=== PATIENT | female | born 1945 | race Caucasian/White ===

== ENCOUNTER → 2017-09-19 | Outpatient (CLI) | payer MEDICARE ==
[2017-09-19 15:20] LABS: HCT 42.7 % (34.0-46.0); HGB 13.9 gm/dL (11.4-16.0); MCH 29.8 pg (25.0-35.0); MCHC 32.5 g/dL (31.0-37.0); MCV 91.8 fL (80.0-100.0); Mean Platelet Volume 7.4; Platelet Count 229 k/uL (150-450); RBC 4.65 m/uL (3.80-5.40); RDW 12.9 % (11.5-15.5); WBC 8.3 k/uL (3.8-10.6)
[2017-09-19 15:30] LABS: Anion Gap 8 mmol/L; Blood Urea Nitrogen 21 mg/dL (7-17); Carbon Dioxide 29 mmol/L (22-30); Chloride 99 mmol/L (98-107); Potassium 4.3 mmol/L (3.5-5.1); Sodium 136 mmol/L (137-145)
== END | disposition home or self-care (01) ==
LOC: LABWHC1 14:18
PROVIDERS: ATTEND Internal Medicine Interventional Cardiology
DX: Z01.812 Encounter for preprocedural laboratory examination (principal); I25.10 Atherosclerotic heart disease of native coronary artery without angina pectoris
CPT/HCPCS: 36415; 80051; 82565; 84520; 85027

== ENCOUNTER 2017-09-23 09:30 | Day surgery (SDC) | payer MEDICARE ==
[~2017-09-23 09:30] MED LIST: ALPRAZolam 0.25 MG TAB PO PRN; ALPRAZolam 0.5 MG TAB PO PRN; ASPIRIN 325 MG TAB PO STA; ATORVASTATIN 80 MG TAB PO STA; NITROGLYCERIN SL TABS 0.4 MG TAB SUBLINGUAL PRN; SODIUM CHLORIDE 0.9% 1,000 ML in EMPTY BAG 1 BAG IV ONE
[2017-09-23 09:48] VITALS: TEMP 98.2
[2017-09-23 10:01] LABS: Glucose,Whole Blood 172 mg/dL (75-99)
[2017-09-23] MEDS ORDERED: MIDAZOLAM 2 MG/2 ML VIAL ONE (11:00)
[2017-09-23] MEDS ORDERED: MIDAZOLAM 2 MG/2 ML VIAL IVP ONE (11:02)
[2017-09-23] MEDS ORDERED: LIDOCAINE 2% INJ 20 MG/ML SQ ONE (11:03)
[2017-09-23] MEDS ORDERED: IOHEXOL 350 MG/ML 125ML BOTTLE INJ ONE (11:21)
[2017-09-23] MEDS ORDERED: HYDROmorphone 2 MG/ML 1 ML SYRINGE ONE (11:27)
[2017-09-23] MEDS ORDERED: RX INFO: IV CONTRAST WAS GIVEN 1 EACH MISC MISCELLANE PRN (12:02)
[2017-09-23] MEDS ORDERED: SODIUM CHLORIDE 0.9% 1,000 ML IV SCH (12:15)
--- NOTE | 2017-09-23 13:03 | CC ---
CARDIAC CATHETERIZATION REPORT DATE OF SERVICE: 09/23/2017. PERFORMING PHYSICIAN: Pop Magana MD, distributing clerk. PROCEDURE PERFORMED: 1. Selective right and left coronary angiogram. 2. Left heart catheterization. 3. Left ventriculography. INDICATION: This is a pleasant 72-year-old female patient who is known to have coronary artery disease and prior stenting of the RCA and left circumflex was experiencing chest discomfort and she underwent a myocardial perfusion imaging stress test and that revealed anterior ischemia. In view of that, heart catheterization was recommended. APPROACH: Right common femoral artery. COMPLICATION: None. LEVEL OF SEDATION: Moderate with sedation length of 25 minutes. PROCEDURE DESCRIPTION: After obtaining an informed consent, the patient was brought to the cardiac r&d lab technician. The right common femoral artery was cannulated using micropuncture technique and a micropuncture wire passed easily. Then I placed a 6-Lithuanian sheath in the right common femoral artery. After that, I did selective right and left coronary angiogram using JR4 and JL4 catheters. After that I did left heart catheterization and LV gram using 6- Lithuanian pigtail catheter. The procedure was completed without any complication. SELECTIVE CORONARY ANGIOGRAM: 1. The RCA is a large caliber vessel and it is a dominant vessel. The proximal RCA is stented and the stent is patent. The mid RCA has mild disease only and RCA distally appeared to be angiographically normal and bifurcates into PDA and PLV branches. Both are angiographically normal. 2. The left main is angiographically normal. It bifurcates into the left circumflex and left anterior descending artery. 3. The left circumflex is a large caliber vessel and it is a nondominant vessel. The proximal circ is stented and the stent is patent. The mid circ is normal and gives rise into OM branch which seems to be angiographically normal and the circ continued after that as a medium caliber vessel in the AV groove. 4. The left anterior descending artery; the proximal LAD is normal and gives rise into a large diagonal, which seems to be angiographically normal. The mid LAD has mild disease only and the LAD distally appeared to have mild disease only. HEMODYNAMICS: The left ventricular end-diastolic pressure was 8 mmHg and no gradient was identified across the aortic valve. LEFT VENTRICULOGRAPHY: Left ventriculography was performed in the ANGELO projection and using a power injection. The left ventricular systolic function is normal with an EF of 55% to 60%. CONCLUSION: 1. Patent stent in the RCA and left circumflex. 2. Mild nonobstructive disease involving the left anterior descending artery. Postprocedure management is maximize medical treatment and follow up with the patient. WENDIE / IJN: [id number] /
--- NOTE | 2017-09-23 13:06 | LTR ---
September 23, 2017 Re: Melida Elizabeth Dear Dr. Corbin: I had the pleasure of seeing Ms. Melida Johnson at [facility] for heart catheterization. The heart catheterization revealed patent stents in both the RCA and the left circumflex. No need for any workup at this point of time. I will continue following up with her as an outpatient and I want to thank you for allowing me to participate in her care. Sincerely, MD WENDIE Brambila / ELINA: [phone] /
[2017-09-23 15:21] VITALS: BP 120/84; PULSE 75; RESP 16
== END 2017-09-23 16:46 | disposition home or self-care (01) ==
LOC: CATHCVL 09:30
PROVIDERS: ATTEND Internal Medicine Interventional Cardiology
DX: I25.110 Atherosclerotic heart disease of native coronary artery with unstable angina pectoris (principal); Z95.5 Presence of coronary angioplasty implant and graft; R94.39 Abnormal result of other cardiovascular function study; E11.9 Type 2 diabetes mellitus without complications; I10 Essential (primary) hypertension; E78.00 Pure hypercholesterolemia, unspecified; Z82.49 Family history of ischemic heart disease and other diseases of the circulatory system; Z79.82 Long term (current) use of aspirin; Z79.4 Long term (current) use of insulin; Z79.899 Other long term (current) drug therapy; Z88.5 Allergy status to narcotic agent; Z87.891 Personal history of nicotine dependence
CPT/HCPCS: 93458; C1760; C1894; C1769 ×2; J2001; J2250; Q9967

== ENCOUNTER 2019-05-18 15:48 | Emergency (ER) | payer MEDICARE ==
[2019-05-18] MEDS ORDERED: SODIUM CHLORIDE 0.9% 500 ML 500 ML IV STA (17:16)
[2019-05-18 17:23] VITALS: RESP 18
[2019-05-18 17:26] LABS: Basophils # (A) 0.1 k/uL (0-0.2); Basophils % (A) 1 %; Eosinophils # (A) 0.2 k/uL (0-0.7); Eosinophils % (A) 2 %; HCT 44.6 % (34.0-46.0); HGB 15.1 gm/dL (11.4-16.0); Lymphocytes # (A) 1.4 k/uL (1.0-4.8); Lymphocytes % (A) 15 %; MCH 31.2 pg (25.0-35.0); MCHC 33.9 g/dL (31.0-37.0); MCV 92.1 fL (80.0-100.0); Mean Platelet Volume 7.9; Monocytes # (A) 0.5 k/uL (0-1.0); Monocytes % (A) 6 %; Neutrophils # (A) 6.6 k/uL (1.3-7.7); Neutrophils % (A) 75 %; Platelet Count 218 k/uL (150-450); RBC 4.85 m/uL (3.80-5.40); RDW 12.8 % (11.5-15.5); WBC 8.8 k/uL (3.8-10.6)
--- NOTE | 2019-05-18 17:28 | ED ---
General Adult HPI - General Chief complaint: Dizziness Stated complaint: Dizziness/Chest pressure Time Seen by Provider: 05/18/19 16:57 Source: patient, family, RN notes reviewed, old records reviewed Mode of arrival: ambulatory Limitations: no limitations - History of Present Illness Initial comments: Chief complaint and history of present illness this is a 74-year-old female here with her significant other. The patient reports that for the past month she's been seeing her family doctor with a complaint of worsening dizziness. Increases with standing and movement. She reports that she almost fell several times. On top of that she is also complaining of diarrhea, on-again nausea and vomiting, decreased urination and mild chest pressure which is reproducible. Patient reports when she takes a deep breath she gets the pain and describes it as a catching feeling in the middle of her chest. She has been on metoprolol for many years recently decreased and subsequently stopped 2 days ago. Told to come the emergency room if her symptoms worsen. She states she's not been trying to lose weight but she's lost 30 pounds in the past 3 months. She denies any dark stool. Denies any ulcer type symptoms of late. - Related Data Home Medications Medication Instructions Recorded Confirmed Aspirin 81 mg PO DAILY 11/20/14 05/18/19 Citalopram Hydrobromide 40 mg PO DAILY 11/20/14 05/18/19 [Citalopram HBr] Timolol 0.5% Ophth Soln [Timoptic 1 drop RIGHT EYE QAM 11/20/14 05/18/19 0.5% Ophth Soln] Vits A,C,E/Lutein/Minerals 1 tab PO BID 11/20/14 05/18/19 [Ocuvite with Lutein Tablet] Insulin Glargine [Lantus] 38 unit SQ QAM 09/20/17 05/18/19 Dicyclomine [Bentyl] 10 mg PO TID-W/MEALS 05/18/19 05/18/19 Empagliflozin [Jardiance] 25 mg PO DAILY 05/18/19 05/18/19 Furosemide [Lasix] 40 mg PO DAILY 05/18/19 05/18/19 Hydrochlorothiazide [Hydrodiuril] 25 mg PO DAILY 05/18/19 05/18/19 Isosorbide Mononitrate ER [Imdur] 30 mg PO DAILY 05/18/19 05/18/19 Lisinopril [Zestril] 20 mg PO DAILY 05/18/19 05/18/19 Oxybutynin Chloride 5 mg PO BID 05/18/19 05/18/19 Pioglitazone HCl [Actos] 15 mg PO DAILY 05/18/19 05/18/19 Psyllium Husk [Metamucil] 0.4 gm PO DAILY 05/18/19 05/18/19 metFORMIN HCL ER [Glucophage Xr] 500 mg PO BID 05/18/19 05/18/19 Allergies Allergy/AdvReac Type Severity Reaction Status Date / Time codeine AdvReac Nausea & Verified 05/18/19 16:28 Vomiting Review of Systems ROS Statement: Those systems with pertinent positive or pertinent negative responses have been documented in the HPI. Review of systems. Patient denies headache or visual acuity changes change in position increases dizziness especially from a sitting to a standing position complaint nausea vomiting at times and diarrhea. Recently was taken off metoprolol which she had been on for many years. Also decreased urine output lately. Denies any neuro deficits. Denies any pain other than occasional chest discomfort when she takes a deep breath. All systems were reviewed. Past medical problems significant for heart disease with one episode of [place]. She's had 2 cardiac stents placed, 3 DVTs one PE, GERD, hypertension, hypothyroidism and macular degeneration. The patient's surgeon cholecystectomy, heart catheterization with 2 stents, hysterectomy, carpal tunnel surgery, 2 heart stents, LAP-BAND surgery but no fluid currently in the band. Family history sister had lung cancer and a brother had leukemia. Patient has ALLERGIES to codeine which causes upset stomach. Patient quit smoking in 1984. Drinks one glass of wine every 2 months. ROS Other: All systems not noted in ROS Statement are negative. Past Medical History Past Medical History: Coronary Artery Disease (CAD), Chest Pain / Angina, Diabetes Mellitus, Deep Vein Thrombosis (DVT), Eye Disorder, GERD/Reflux, Hypertension, Myocardial Infarction (OH), Pulmonary Embolus (PE), Thyroid Disorder Additional Past Medical History / Comment(s): DVT X 3 KEVIN LEGS, PE 1971, IBS, MACULAR DEG KEVIN EYE-LT EYE WET-RT EYE DRY, GOITER. Diverticulitis, stomach ulcer Last Myocardial Infarction Date:: Jun 2012 History of Any Multi-Drug Resistant Organisms: None Reported Past Surgical History: Cholecystectomy, Heart Catheterization With Stent, Hysterectomy, Orthopedic Surgery Additional Past Surgical History / Comment(s): heart stent x 2, LAP BAND-NO FLU ID PRESENT, KEVIN CATARACT REM, EYE SURGERY TO REMOVE GLASS FROM LT EYE, PLASTIC PLATE AND MUSCLE SURGERY LT EYE Past Anesthesia/Blood Transfusion Reactions: No Reported Reaction Date of Last Stent Placement:: NOVEMBER 2014 Past Psychological History: No Psychological Hx Reported, Depression Smoking Status: Former smoker Past Alcohol Use History: None Reported Past Drug Use History: None Reported - Past Family History Sister(s) Family Medical History: Deep Vein Thrombosis (DVT) Father Family Medical History: Coronary Artery Disease (CAD), Diabetes Mellitus General Exam - General Exam Comments Initial Comments: General: The patient is awake and alert, here because of dizziness which is getting progressively worse especially over the past 2 days. She states she nearly falls over when she stands up. She states while in the doctor's office her blood pressure dropped by more than 20 points from sitting to standing. Patient was taken off metoprolol 3 days ago. Vital signs shows temperature 98.9 initial pulse 117 after resting it was 90 on examination. Respiratory rate 20 pressure 111/63 and a pulse ox 95% room air. Eye: Pupils are equal, round and reactive to light, extra-ocular movements are intact; there is normal conjunctiva bilaterally. No signs of icterus. Ears, nose, mouth and throat: There are moist mucous membranes and no oral lesions. Neck: The neck is supple, there is no tenderness, thyroid not enlarged, no anterior cervical lymphadenopathy, no carotid bruit. Cardiovascular: There is a regular rate and rhythm. No murmur, rub or gallop is appreciated. Respiratory: Lungs are clear to auscultation, respirations are non-labored, breath sounds are equal. No wheezes, stridor, rales, or rhonchi. Patient states a deep breath causes mild discomfort to her chest, reproducible. Gastrointestinal: Soft, non-distended, non-tender abdomen without masses or organomegaly noted. There is no rebound or guarding present. No CVA tenderness. Bowel sounds are unremarkable. Patient reports she has a history of irritable bowel syndrome. I did mild upset stomach of late, ulcer in the past but does not feel like she has an ulcer now. Denies any dark stools. Back: Denies back pain.. Musculoskeletal: Normal ROM, no tenderness, There is no pedal edema. There is no calf tenderness or swelling. Sensation intact. Pulses equal bilaterally 2+. Neurological: No neuro deficits complained of. She does complain of dizziness from sitting to standing position which is getting progressively worse over the past several days. Skin: Skin is warm and dry and no rashes or lesions are noted. Psychiatric: Cooperative, Limitations: no limitations Course Vital Signs 05/18/19 05/18/19 05/18/19 15:53 17:20 18:30 Temperature 98.9 F Pulse Rate 117 H 91 83 Pulse Rate [ Sitting Sanitary Aide] Pulse Rate [ Standing Sanitary Aide ] Pulse Rate [ Supine Sanitary Aide] Respiratory 20 18 18 Rate Blood Pressure 111/63 111/61 115/53 Blood Pressure [Right Arm Sitting] Blood Pressure [Right Arm Standing] Blood Pressure [Right Arm Supine] O2 Sat by Pulse 95 98 97 Oximetry 05/18/19 05/18/19 19:00 20:00 Temperature Pulse Rate 71 Pulse Rate [ 80 Sitting Sanitary Aide] Pulse Rate [ 93 Standing Sanitary Aide ] Pulse Rate [ 74 Supine Sanitary Aide] Respiratory 18 Rate Blood Pressure 117/49 Blood Pressure 130/59 [Right Arm Sitting] Blood Pressure 112/65 [Right Arm Standing] Blood Pressure 122/50 [Right Arm Supine] O2 Sat by Pulse 96 Oximetry EKG Findings - EKG Comments: EKG Findings:: EKG was done and reviewed at 1600 showing sinus tachycardia rate 105. No acute ST elevation noted. ND interval is 158 QRS 82 QT 362 QTc 478. EKG was compared to one done on 03/08/2015 and they are similar. Dr. Doyle Medical Decision Making - Medical Decision Making Medical decision making; this 74-year-old female here for complaint of worsening dizziness and balance problems associated with going from sitting to a standing position. She was orthostatically positive at the doctor's office 2 days ago. She's recently stopped Lasix 1 week ago and metoprolol 2 days ago. Patient denies any previous knowledge of chronic kidney disease though today's kidney function tests showed a GFR is only 33 with a BUN of 45 and a creatinine 1.57. The patient's labs show white count of 8.8 hemoglobin 15 hematocrit of 44 potassium 4.3 glucose 285. The patient does use insulin to cover her blood sugar. Troponin less than 0.012. Chest x-ray was done and reviewed by Dr. johnson and his findings include a tiny left pleural effusion cardiomegaly and chronic changes. Her current orthostatics show blood pressure of 122/50 lying heart rate 74 and she stood up she felt dizzy, blood pressure 112/65 heart rate 93. Patient's feeling better after 1/2 L of fluid. Heart rate down, blood pressure good. Patient position changes will be challenged. She did receive 4 units of regular insulin subcu for blood sugar of 235. Patient advised increase her fluids at home and follow-up with her family physician. I discussed with the patient possibility of acute kidney injury associated with possible dehydration. No old kidney function tests are available at this time to compare to. Patient's blood sugar was rechecked at 150. No subcu insulin will be administered. Patient will recheck when she gets home. She feels better and wants to go home. - Lab Data Result diagrams: 05/18/19 16:19 05/18/19 16:19 Lab Results 05/18/19 05/18/19 05/18/19 Range/Units 16:19 16:19 16:19 WBC 8.8 (3.8-10.6) k/uL RBC 4.85 (3.80-5.40) m/uL Hgb 15.1 (11.4-16.0) gm/dL Hct 44.6 (34.0-46.0) % MCV 92.1 (80.0-100.0) fL MCH 31.2 (25.0-35.0) pg MCHC 33.9 (31.0-37.0) g/dL RDW 12.8 (11.5-15.5) % Plt Count 218 (150-450) k/uL Neutrophils % 75 % Lymphocytes % 15 % Monocytes % 6 % Eosinophils % 2 % Basophils % 1 % Neutrophils # 6.6 (1.3-7.7) k/uL Lymphocytes # 1.4 (1.0-4.8) k/uL Monocytes # 0.5 (0-1.0) k/uL Eosinophils # 0.2 (0-0.7) k/uL Basophils # 0.1 (0-0.2) k/uL Sodium 132 L (137-145) mmol/L Potassium 4.3 (3.5-5.1) mmol/L Chloride 96 L (98-107) mmol/L Carbon Dioxide 23 (22-30) mmol/L Anion Gap 13 mmol/L BUN 45 H (7-17) mg/dL Creatinine 1.57 H (0.52-1.04) mg/dL Est GFR (CKD-EPI)AfAm 37 (>60 ml/min/1.73 sqM) Est GFR (CKD-EPI)NonAf 33 (>60 ml/min/1.73 sqM) Glucose 285 H (74-99) mg/dL POC Glucose (mg/dL) (75-99) mg/dL POC Glu Day Habilitation Specialist ID Calcium 9.8 (8.4-10.2) mg/dL Total Bilirubin 0.4 (0.2-1.3) mg/dL AST 18 (14-36) U/L ALT 17 (9-52) U/L Alkaline Phosphatase 59 (38-126) U/L Troponin I <0.012 (0.000-0.034) ng/mL Total Protein 6.5 (6.3-8.2) g/dL Albumin 4.1 (3.5-5.0) g/dL Urine Color Urine Appearance (Clear) Urine pH (5.0-8.0) Ur Specific [place] (1.001-1.035) Urine Protein (Negative) Urine Glucose (UA) (Negative) Urine Ketones (Negative) Urine Blood (Negative) Urine Nitrite (Negative) Urine Bilirubin (Negative) Urine Urobilinogen (<2.0) mg/dL Ur Leukocyte Esterase (Negative) Urine RBC (0-5) /hpf Urine WBC (0-5) /hpf Ur Squamous Epith Cells (0-4) /hpf Urine Bacteria (None) /hpf Hyaline Casts (0-2) /lpf Urine Mucus (None) /hpf Ur Yeast w Hyphae (None) /hpf 05/18/19 05/18/19 Range/Units 17:37 20:31 WBC (3.8-10.6) k/uL RBC (3.80-5.40) m/uL Hgb (11.4-16.0) gm/dL Hct (34.0-46.0) % MCV (80.0-100.0) fL MCH (25.0-35.0) pg MCHC (31.0-37.0) g/dL RDW (11.5-15.5) % Plt Count (150-450) k/uL Neutrophils % % Lymphocytes % % Monocytes % % Eosinophils % % Basophils % % Neutrophils # (1.3-7.7) k/uL Lymphocytes # (1.0-4.8) k/uL Monocytes # (0-1.0) k/uL Eosinophils # (0-0.7) k/uL Basophils # (0-0.2) k/uL Sodium (137-145) mmol/L Potassium (3.5-5.1) mmol/L Chloride (98-107) mmol/L Carbon Dioxide (22-30) mmol/L Anion Gap mmol/L BUN (7-17) mg/dL Creatinine (0.52-1.04) mg/dL Est GFR (CKD-EPI)AfAm (>60 ml/min/1.73 sqM) Est GFR (CKD-EPI)NonAf (>60 ml/min/1.73 sqM) Glucose (74-99) mg/dL POC Glucose (mg/dL) 154 H (75-99) mg/dL POC Glu Day Habilitation Specialist ID Nelson, Aishwarya Calcium (8.4-10.2) mg/dL Total Bilirubin (0.2-1.3) mg/dL AST (14-36) U/L ALT (9-52) U/L Alkaline Phosphatase (38-126) U/L Troponin I (0.000-0.034) ng/mL Total Protein (6.3-8.2) g/dL Albumin (3.5-5.0) g/dL Urine Color Yellow Urine Appearance Cloudy H (Clear) Urine pH 5.0 (5.0-8.0) Ur Specific [place] 1.016 (1.001-1.035) Urine Protein Negative (Negative) Urine Glucose (UA) 4+ H (Negative) Urine Ketones Negative (Negative) Urine Blood Negative (Negative) Urine Nitrite Positive H (Negative) Urine Bilirubin Negative (Negative) Urine Urobilinogen <2.0 (<2.0) mg/dL Ur Leukocyte Esterase Large H (Negative) Urine RBC 2 (0-5) /hpf Urine WBC 28 H (0-5) /hpf Ur Squamous Epith Cells 3 (0-4) /hpf Urine Bacteria Many H (None) /hpf Hyaline Casts 10 H (0-2) /lpf Urine Mucus Rare H (None) /hpf Ur Yeast w Hyphae Rare (None) /hpf Disposition Clinical Impression: Dizziness on standing, Dehydration symptoms, Acute kidney injury Disposition: HOME SELF-CARE Condition: Fair Instructions (If sedation given, give patient instructions): Dizziness (ED), Dehydration (ED), Acute Kidney Injury (DC) Additional Instructions: Increase fluids. Call follow up with your family physician or return emergency room immediately if he have any return of your symptoms. Change positions slowly. Is patient prescribed a controlled substance at d/c from ED?: No Referrals: Rodolfo Corbin MD [Primary Care Provider] - 1-2 days Time of Disposition: 20:36
--- NOTE | 2019-05-18 17:37 | XR ---
EXAMINATION TYPE: XR chest 2V DATE OF EXAM: 05/18/2019 COMPARISON: Chest x-ray March 08, 2015. HISTORY: Chest pressure. History of lap band. TECHNIQUE: Frontal and lateral views of the chest are obtained. FINDINGS: There is chronic parenchymal change without suspicious new focal air space opacity or pneu mothorax seen. New small to tiny left pleural effusion felt present with slight blunting of the poste rior and left lateral costophrenic angle on current study. The cardiac silhouette size is mildly enla rged with atherosclerotic aorta. The osseous structures are intact. Lap band device epigastric rhea on stable in position and appearance. IMPRESSION: Cardiomegaly and chronic parenchymal change with new small to tiny left pleural effusion .
[2019-05-18 17:43] LABS: Albumin 4.1 g/dL (3.5-5.0); Calcium 9.8 mg/dL (8.4-10.2); Potassium 4.3 mmol/L (3.5-5.1); Total Bilirubin 0.4 mg/dL (0.2-1.3); Total Protein 6.5 g/dL (6.3-8.2)
[2019-05-18 18:56] LABS: Appearance,Urine Cloudy (Clear); Bacteria,Urine Many /hpf; Bilirubin,Urine Negative (Negative); Blood,Urine Negative (Negative); Color,Urine Yellow; Glucose,Urine (UA) 4+ (Negative); Hyaline Casts,Urine 10 /lpf (0-2); Hyphae Yeast, Urine Rare /hpf; Ketones,Urine Negative (Negative); Leukocyte Esterase,Urine Large (Negative); Mucus,Urine Rare /hpf; Nitrite,Urine Positive (Negative); Protein,Urine Negative (Negative); RBC,Urine 2 /hpf (0-5); Specific Gravity,Urine 1.016 (1.001-1.035); Squamous Epithelial Cell,Urine 3 /hpf (0-4); Urobilinogen,Urine <2.0 mg/dL (<2.0); WBC,Urine 28 /hpf (0-5)
[2019-05-18] MEDS ORDERED: SODIUM CHLORIDE 0.9% 1,000 ML IV ONE (19:18)
[2019-05-18] MEDS ORDERED: INSULIN REGULAR 100 UNIT/ML VIAL SQ ONE (20:25)
[2019-05-18 20:33] LABS: Glucose,Whole Blood 154 mg/dL (75-99)
[2019-05-18 21:02] VITALS: BP 121/60; PULSE 80; TEMP 97.9
== END 2019-05-18 20:50 | disposition home or self-care (01) ==
LOC: EC 15:48
DX: E86.0 Dehydration (principal); N17.9 Acute kidney failure, unspecified; J90 Pleural effusion, not elsewhere classified; R07.1 Chest pain on breathing; R19.7 Diarrhea, unspecified; R11.2 Nausea with vomiting, unspecified; I25.119 Atherosclerotic heart disease of native coronary artery with unspecified angina pectoris; I11.9 Hypertensive heart disease without heart failure; E11.9 Type 2 diabetes mellitus without complications; K58.9 Irritable bowel syndrome, unspecified; I25.2 Old myocardial infarction; F32.9 Major depressive disorder, single episode, unspecified; H35.30 Unspecified macular degeneration; Z87.891 Personal history of nicotine dependence; Z88.5 Allergy status to narcotic agent; Z79.4 Long term (current) use of insulin; Z79.82 Long term (current) use of aspirin; Z79.899 Other long term (current) drug therapy; Z87.09 Personal history of other diseases of the respiratory system; Z87.19 Personal history of other diseases of the digestive system; Z90.49 Acquired absence of other specified parts of digestive tract; Z95.5 Presence of coronary angioplasty implant and graft; Z82.49 Family history of ischemic heart disease and other diseases of the circulatory system; Z53.8 Procedure and treatment not carried out for other reasons
CPT/HCPCS: 36415; 71046; 80053; 81001; 84484; 85025; 87077; 87086; 87186; 93005; 96360; 96361; 99284

== ENCOUNTER 2019-05-26 16:12 | Emergency (ER) | payer MEDICARE ==
[2019-05-26] MEDS ORDERED: SODIUM CHLORIDE 0.9% 1,000 ML IV STA (16:38)
--- NOTE | 2019-05-26 16:38 | ED ---
Dizziness HPI - General Chief Complaint: Dizziness Stated Complaint: DIZZY Time Seen by Provider: 05/26/19 16:22 Source: patient, RN notes reviewed, old records reviewed Mode of arrival: ambulatory Limitations: no limitations - History of Present Illness Initial Comments: This is a 74-year-old female the ER for evaluation. Patient presented today with weeks to months of dizziness. Patient has been seen by her primary care starting medications for vertiginous symptoms. No improvement. Patient also had a syncopal episode prior to arrival today. Patient felt very lightheaded and dizzy when she stood up she passed out she fell back she hit her head. Patient denies any recent medication changes, she was taken off metoprolol for low blood pressure. Patient denying any current headache chest pain shortness of breath or abdominal pain. No prior history of syncope MD Complaint: dizziness, near syncope (Patient did have syncopal event today), other (Jewell symptoms 2 months) -: month(s) Timing: gradual onset Description: sense of movement, "room spinning", difficulty walking History of Same: Yes History of Trauma: Yes (Patient did hit her head after syncopal event today) Severity: mild Improves With: nothing Worsens With: nothing Associated Symptoms: syncope, weakness - Related Data Home Medications Medication Instructions Recorded Confirmed Aspirin 81 mg PO DAILY 11/20/14 05/26/19 Citalopram Hydrobromide 40 mg PO DAILY 11/20/14 05/26/19 [Citalopram HBr] Timolol 0.5% Ophth Soln [Timoptic 1 drop RIGHT EYE QAM 11/20/14 05/26/19 0.5% Ophth Soln] Vits A,C,E/Lutein/Minerals 1 tab PO BID 11/20/14 05/26/19 [Ocuvite with Lutein Tablet] Insulin Glargine [Lantus] 38 unit SQ QAM 09/20/17 05/26/19 Dicyclomine [Bentyl] 10 mg PO TID-W/MEALS 05/18/19 05/26/19 Empagliflozin [Jardiance] 25 mg PO DAILY 05/18/19 05/26/19 Furosemide [Lasix] 40 mg PO DAILY 05/18/19 05/26/19 Hydrochlorothiazide [Hydrodiuril] 25 mg PO DAILY 05/18/19 05/26/19 Isosorbide Mononitrate ER [Imdur] 30 mg PO DAILY 05/18/19 05/26/19 Lisinopril [Zestril] 20 mg PO DAILY 05/18/19 05/26/19 Oxybutynin Chloride 5 mg PO BID 05/18/19 05/26/19 Pioglitazone HCl [Actos] 15 mg PO DAILY 05/18/19 05/26/19 Psyllium Husk [Metamucil] 0.4 gm PO DAILY 05/18/19 05/26/19 metFORMIN HCL ER [Glucophage Xr] 500 mg PO BID 05/18/19 05/26/19 Cephalexin [Keflex] 500 mg PO Q6H 05/26/19 05/26/19 Allergies Allergy/AdvReac Type Severity Reaction Status Date / Time codeine AdvReac Nausea & Verified 05/26/19 16:35 Vomiting Review of Systems ROS Statement: Those systems with pertinent positive or pertinent negative responses have been documented in the HPI. ROS Other: All systems not noted in ROS Statement are negative. 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 Diverticulitis, stomach ulcer Last Myocardial Infarction Date:: Jun 2012 History of Any Multi-Drug Resistant Organisms: None Reported Past Surgical History: Cholecystectomy, Heart Catheterization With Stent, H ysterectomy, Orthopedic Surgery Additional Past Surgical History / Comment(s): heart stent x 2, LAP BAND-NO FLUID PRESENT, KEVIN CATARACT REM, EYE SURGERY TO REMOVE GLASS FROM LT EYE, PLASTIC PLATE AND MUSCLE SURGERY LT EYE Past Anesthesia/Blood Transfusion Reactions: No Reported Reaction Date of Last Stent Placement:: NOVEMBER 2014 Past Psychological History: No Psychological Hx Reported, Depression Smoking Status: Former smoker Past Alcohol Use History: None Reported Past Drug Use History: None Reported - Past Family History Sister(s) Family Medical History: Deep Vein Thrombosis (DVT) Father Family Medical History: Coronary Artery Disease (CAD), Diabetes Mellitus General Exam - General Exam Comments Initial Comments: NIH of 0, heel durant and finger-nose negative Limitations: no limitations General appearance: alert, in no apparent distress Head exam: Present: atraumatic, normocephalic, normal inspection Eye exam: Present: normal appearance, PERRL, EOMI. Absent: scleral icterus, conjunctival injection, periorbital swelling ENT exam: Present: normal exam, mucous membranes moist Neck exam: Present: normal inspection. Absent: tenderness, meningismus, lymphadenopathy Respiratory exam: Present: normal lung sounds bilaterally. Absent: respiratory distress, wheezes, rales, rhonchi, stridor Cardiovascular Exam: Present: regular rate, normal rhythm, normal heart sounds. Absent: systolic murmur, diastolic murmur, rubs, gallop, clicks GI/Abdominal exam: Present: soft, normal bowel sounds. Absent: distended, tenderness, guarding, rebound, rigid Extremities exam: Present: normal inspection, full ROM, normal capillary refill. Absent: tenderness, pedal edema, joint swelling, calf tenderness Back exam: Present: normal inspection Neurological exam: Present: alert, oriented X3, CN II-XII intact Psychiatric exam: Present: normal affect, normal mood Skin exam: Present: warm, dry, intact, normal color. Absent: rash Course Vital Signs 05/26/19 05/26/19 05/26/19 16:13 17:38 18:41 Temperature 97.8 F Pulse Rate 82 69 68 Respiratory 20 18 18 Rate Blood Pressure 97/66 123/59 125/75 O2 Sat by Pulse 94 L 96 96 Oximetry - Reevaluation(s) Reevaluation #1: 05/26/19 16:38 Medical records reviewed Reevaluation #2: 05/26/19 19:17 Patient is without syncopal event, denies complaints no headache chest pain shortness breath or abdominal pain. Patient offered observation, will like to be discharged follow-up with outside machinist apprentice on Tuesday EKG Findings - EKG Comments: EKG Findings:: EKG shows sinus rhythm rate of 74, NM 170, QRS 84, QTc 450 Medical Decision Making - Medical Decision Making 74 female the ER for evaluation presented for evaluation of syncopal event dizziness. In our ER 6 days ago for similar events but no syncope. Positive UTI still taking antibiotics. Patient is dehydrated. With no significant acute cause found. Patient will be discharged - Lab Data Result diagrams: 05/26/19 17:05 05/26/19 17:05 Lab Results 05/26/19 05/26/19 05/26/19 Range/Units 17:05 17:05 17:05 WBC 7.9 (3.8-10.6) k/uL RBC 4.72 (3.80-5.40) m/uL Hgb 14.6 (11.4-16.0) gm/dL Hct 43.3 (34.0-46.0) % MCV 91.7 (80.0-100.0) fL MCH 30.8 (25.0-35.0) pg MCHC 33.6 (31.0-37.0) g/dL RDW 12.7 (11.5-15.5) % Plt Count 219 (150-450) k/uL Neutrophils % 72 % Lymphocytes % 16 % Monocytes % 7 % Eosinophils % 3 % Basophils % 0 % Neutrophils # 5.7 (1.3-7.7) k/uL Lymphocytes # 1.3 (1.0-4.8) k/uL Monocytes # 0.5 (0-1.0) k/uL Eosinophils # 0.3 (0-0.7) k/uL Basophils # 0.0 (0-0.2) k/uL PT (9.0-12.0) sec INR (<1.2) APTT (22.0-30.0) sec Sodium 134 L (137-145) mmol/L Potassium 4.4 (3.5-5.1) mmol/L Chloride 100 (98-107) mmol/L Carbon Dioxide 21 L (22-30) mmol/L Anion Gap 13 mmol/L BUN 36 H (7-17) mg/dL Creatinine 1.23 H (0.52-1.04) mg/dL Est GFR (CKD-EPI)AfAm 51 (>60 ml/min/1.73 sqM) Est GFR (CKD-EPI)NonAf 44 (>60 ml/min/1.73 sqM) Glucose 178 H (74-99) mg/dL Plasma Lactic Acid Jatin 3.5 H* (0.7-2.0) mmol/L Calcium 9.7 (8.4-10.2) mg/dL Phosphorus 4.2 (2.5-4.5) mg/dL Magnesium 2.1 (1.6-2.3) mg/dL Total Bilirubin 0.3 (0.2-1.3) mg/dL AST 18 (14-36) U/L ALT 16 (9-52) U/L Alkaline Phosphatase 51 (38-126) U/L Creatine Kinase 33 (30-135) U/L Troponin I (0.000-0.034) ng/mL NT-Pro-B Natriuret Pep pg/mL Total Protein 6.2 L (6.3-8.2) g/dL Albumin 3.8 (3.5-5.0) g/dL Urine Color Urine Appearance (Clear) Urine pH (5.0-8.0) Ur Specific [place] (1.001-1.035) Urine Protein (Negative) Urine Glucose (UA) (Negative) Urine Ketones (Negative) Urine Blood (Negative) Urine Nitrite (Negative) Urine Bilirubin (Negative) Urine Urobilinogen (<2.0) mg/dL Ur Leukocyte Esterase (Negative) 05/26/19 05/26/19 05/26/19 Range/Units 17:05 17:05 17:35 WBC (3.8-10.6) k/uL RBC (3.80-5.40) m/uL Hgb (11.4-16.0) gm/dL Hct (34.0-46.0) % MCV (80.0-100.0) fL MCH (25.0-35.0) pg MCHC (31.0-37.0) g/dL RDW (11.5-15.5) % Plt Count (150-450) k/uL Neutrophils % % Lymphocytes % % Monocytes % % Eosinophils % % Basophils % % Neutrophils # (1.3-7.7) k/uL Lymphocytes # (1.0-4.8) k/uL Monocytes # (0-1.0) k/uL Eosinophils # (0-0.7) k/uL Basophils # (0-0.2) k/uL PT 9.8 (9.0-12.0) sec INR 0.9 (<1.2) APTT 22.1 (22.0-30.0) sec Sodium (137-145) mmol/L Potassium (3.5-5.1) mmol/L Chloride (98-107) mmol/L Carbon Dioxide (22-30) mmol/L Anion Gap mmol/L BUN (7-17) mg/dL Creatinine (0.52-1.04) mg/dL Est GFR (CKD-EPI)AfAm (>60 ml/min/1.73 sqM) Est GFR (CKD-EPI)NonAf (>60 ml/min/1.73 sqM) Glucose (74-99) mg/dL Plasma Lactic Acid Jatin (0.7-2.0) mmol/L Calcium (8.4-10.2) mg/dL Phosphorus (2.5-4.5) mg/dL Magnesium (1.6-2.3) mg/dL Total Bilirubin (0.2-1.3) mg/dL AST (14-36) U/L ALT (9-52) U/L Alkaline Phosphatase (38-126) U/L Creatine Kinase (30-135) U/L Troponin I <0.012 (0.000-0.034) ng/mL NT-Pro-B Natriuret Pep 269 pg/mL Total Protein (6.3-8.2) g/dL Albumin (3.5-5.0) g/dL Urine Color Urine Appearance (Clear) Urine pH (5.0-8.0) Ur Specific [place] (1.001-1.035) Urine Protein (Negative) Urine Glucose (UA) (Negative) Urine Ketones (Negative) Urine Blood (Negative) Urine Nitrite (Negative) Urine Bilirubin (Negative) Urine Urobilinogen (<2.0) mg/dL Ur Leukocyte Esterase (Negative) 05/26/19 Range/Units 19:05 WBC (3.8-10.6) k/uL RBC (3.80-5.40) m/uL Hgb (11.4-16.0) gm/dL Hct (34.0-46.0) % MCV (80.0-100.0) fL MCH (25.0-35.0) pg MCHC (31.0-37.0) g/dL RDW (11.5-15.5) % Plt Count (150-450) k/uL Neutrophils % % Lymphocytes % % Monocytes % % Eosinophils % % Basophils % % Neutrophils # (1.3-7.7) k/uL Lymphocytes # (1.0-4.8) k/uL Monocytes # (0-1.0) k/uL Eosinophils # (0-0.7) k/uL Basophils # (0-0.2) k/uL PT (9.0-12.0) sec INR (<1.2) APTT (22.0-30.0) sec Sodium (137-145) mmol/L Potassium (3.5-5.1) mmol/L Chloride (98-107) mmol/L Carbon Dioxide (22-30) mmol/L Anion Gap mmol/L BUN (7-17) mg/dL Creatinine (0.52-1.04) mg/dL Est GFR (CKD-EPI)AfAm (>60 ml/min/1.73 sqM) Est GFR (CKD-EPI)NonAf (>60 ml/min/1.73 sqM) Glucose (74-99) mg/dL Plasma Lactic Acid Jatin (0.7-2.0) mmol/L Calcium (8.4-10.2) mg/dL Phosphorus (2.5-4.5) mg/dL Magnesium (1.6-2.3) mg/dL Total Bilirubin (0.2-1.3) mg/dL AST (14-36) U/L ALT (9-52) U/L Alkaline Phosphatase (38-126) U/L Creatine Kinase (30-135) U/L Troponin I (0.000-0.034) ng/mL NT-Pro-B Natriuret Pep pg/mL Total Protein (6.3-8.2) g/dL Albumin (3.5-5.0) g/dL Urine Color Light Yellow Urine Appearance Clear (Clear) Urine pH 5.0 (5.0-8.0) Ur Specific [place] 1.011 (1.001-1.035) Urine Protein Negative (Negative) Urine Glucose (UA) 4+ H (Negative) Urine Ketones Negative (Negative) Urine Blood Negative (Negative) Urine Nitrite Negative (Negative) Urine Bilirubin Negative (Negative) Urine Urobilinogen <2.0 (<2.0) mg/dL Ur Leukocyte Esterase Negative (Negative) - Radiology Data Radiology results: report reviewed (CT brain C-spine negative for acute disease), image reviewed Disposition Clinical Impression: Dizziness on standing, Dehydration, Acute kidney injury, Syncope Disposition: HOME SELF-CARE Condition: Good Instructions (If sedation given, give patient instructions): Dizziness (ED), Syncope (ED) Is patient prescribed a controlled substance at d/c from ED?: No Referrals: Rodolfo Corbin MD [Primary Care Provider] - 1-2 days
[2019-05-26 17:26] LABS: Basophils % (A) 0 %; Eosinophils # (A) 0.3 k/uL (0-0.7); Eosinophils % (A) 3 %; HCT 43.3 % (34.0-46.0); HGB 14.6 gm/dL (11.4-16.0); Lymphocytes # (A) 1.3 k/uL (1.0-4.8); Lymphocytes % (A) 16 %; MCH 30.8 pg (25.0-35.0); MCHC 33.6 g/dL (31.0-37.0); MCV 91.7 fL (80.0-100.0); Mean Platelet Volume 7.5; Monocytes # (A) 0.5 k/uL (0-1.0); Monocytes % (A) 7 %; Neutrophils # (A) 5.7 k/uL (1.3-7.7); Neutrophils % (A) 72 %; Platelet Count 219 k/uL (150-450); RBC 4.72 m/uL (3.80-5.40); RDW 12.7 % (11.5-15.5); WBC 7.9 k/uL (3.8-10.6)
[2019-05-26 17:32] LABS: Albumin 3.8 g/dL (3.5-5.0); Calcium 9.7 mg/dL (8.4-10.2); Magnesium 2.1 mg/dL (1.6-2.3); Phosphorus 4.2 mg/dL (2.5-4.5); Potassium 4.4 mmol/L (3.5-5.1); Total Bilirubin 0.3 mg/dL (0.2-1.3); Total Protein 6.2 g/dL (6.3-8.2)
[2019-05-26 17:39] VITALS: RESP 18
[2019-05-26 17:57] LABS: INR 0.9 (<1.2); Partial Thromboplastin Time 22.1 sec (22.0-30.0); Prothrombin Time 9.8 sec (9.0-12.0)
[2019-05-26 18:41] VITALS: PULSE 68
--- NOTE | 2019-05-26 19:13 | CT ---
EXAMINATION TYPE: CT brain jayant lobo DATE OF EXAM: 05/26/2019 COMPARISON: None HISTORY: Dizziness CT DLP: mGycm Automated exposure control for dose reduction was used. TECHNIQUE: CT scan of the head and cervical spine are performed without contrast. FINDINGS: There is mild cerebral atrophy. There is no mass effect nor midline shift. There is no si gn of intracranial hemorrhage. Calvarium is intact. Cervical vertebra show mild straightening. There is moderate narrowing of the disc spaces at C5-6 C6- 7 with spurring and sclerosis. Facet joints are intact. There is no evidence of a fracture. Skull bas e is intact. IMPRESSION: Negative CT scan of the brain. Moderate spondylosis at C5-6 and C6-7. No fracture.
[2019-05-26 19:17] LABS: Appearance,Urine Clear (Clear); Bilirubin,Urine Negative (Negative); Blood,Urine Negative (Negative); Color,Urine Light Yellow; Glucose,Urine (UA) 4+ (Negative); Ketones,Urine Negative (Negative); Leukocyte Esterase,Urine Negative (Negative); Nitrite,Urine Negative (Negative); Protein,Urine Negative (Negative); Specific Gravity,Urine 1.011 (1.001-1.035); Urobilinogen,Urine <2.0 mg/dL (<2.0)
[2019-05-26 19:19] VITALS: BP 128/59; TEMP 98
== END 2019-05-26 19:33 | disposition home or self-care (01) ==
LOC: EC 16:12
DX: N17.9 Acute kidney failure, unspecified (principal); E86.0 Dehydration; R42 Dizziness and giddiness; R55 Syncope and collapse; I25.119 Atherosclerotic heart disease of native coronary artery with unspecified angina pectoris; E11.9 Type 2 diabetes mellitus without complications; I10 Essential (primary) hypertension; I25.2 Old myocardial infarction; Z79.82 Long term (current) use of aspirin; Z79.4 Long term (current) use of insulin; Z79.899 Other long term (current) drug therapy; Z88.5 Allergy status to narcotic agent; Z86.711 Personal history of pulmonary embolism; Z86.718 Personal history of other venous thrombosis and embolism; Z87.891 Personal history of nicotine dependence; Z95.5 Presence of coronary angioplasty implant and graft
CPT/HCPCS: 36415; 70450; 72125; 80053; 81003; 82550; 83605; 83735; 83880; 84100; 84484; 85025; 85610; 85730; 93005; 96360; 99285

== ENCOUNTER → 2020-02-26 | Outpatient (CLI) | payer MEDICARE ==
--- NOTE | 2020-02-26 12:59 | CT ---
EXAMINATION TYPE: CT chest wo con DATE OF EXAM: 02/26/2020 COMPARISON: None HISTORY: Solitary pulmonary nodule. CT DLP: [address] of the chest was performed with lung and mediastinal window settings submitted. The la ck of contrast limits evaluation of the vascular, mediastinal and parenchymal structures including th e upper abdomen. LUNGS: The lungs are clear and free of infiltrate. No atelectasis. Mild pleural thickening of left m idlung zone laterally. No pulmonary nodule or mass is detected. No pleural effusion. No CT evidence of interstitial lung disease. MEDIASTINUM/CHICO: Thoracic aorta is of normal caliber with limited evaluation given lack of contrast . The heart is not enlarged. No evidence for mediastinal mass. No lymph nodes greater than 1cm. UPPER ABDOMEN: No significant abnormality is seen. Gastric banding device is in place. OTHER: No significant other abnormality. IMPRESSION: 1. Mild left basilar parenchymal scarring. Minimal pleural thickening. No evidence for nodule or eff usion.
== END | disposition home or self-care (01) ==
LOC: RADCTMAIN 12:20
PROVIDERS: ATTEND Internal Medicine Sleep Medicine
DX: R91.8 Other nonspecific abnormal finding of lung field (principal); J98.4 Other disorders of lung
CPT/HCPCS: 71250

== ENCOUNTER 2024-01-16 11:24 | Day surgery (SDC) | payer MEDICARE ==
[2024-01-11 09:51] VITALS: BMI 29.0
[~2024-01-16 11:24] MED LIST changes: -ALPRAZolam 0.25 MG TAB PO PRN; -ALPRAZolam 0.5 MG TAB PO PRN; -ASPIRIN 325 MG TAB PO STA; -ATORVASTATIN 80 MG TAB PO STA; +HYDROmorphone 0.5 MG/0.5 ML SYRINGE IVP PRN; +LIDOCAINE 1% (10MG/ML) FOR IV START INTRADERMA PRN; -NITROGLYCERIN SL TABS 0.4 MG TAB SUBLINGUAL PRN; -SODIUM CHLORIDE 0.9% 1,000 ML in EMPTY BAG 1 BAG IV ONE; +droPERidol 5 MG/2 ML VIAL IVP PRN
[2024-01-16] MEDS: LACTATED RINGERS 1,000 ML IV SCH (11:44)
[2024-01-16] MEDS: DEXAMETHASONE SOD PHOSPHATE 4 MG/ML 1 ML VIAL IV ONE (11:44)
[2024-01-16] MEDS: ACETAMINOPHEN TAB 500 MG TAB PO PRN (11:44)
[2024-01-16] MEDS: ONDANSETRON 4 MG/2 ML VIAL IVP ONE (11:44)
[2024-01-16] MEDS: HEPARIN SODIUM,PORCINE 5,000 UNIT/ML 1 ML VIAL SQ PRN (11:44)
[2024-01-16 12:10] LABS: Glucose,Whole Blood 134 mg/dL (70-110)
[2024-01-16] MEDS ORDERED: ePHEDrine 50 MG/ML 1 ML VIAL ONE (13:27)
[2024-01-16] MEDS ORDERED: PROPOFOL 10 MG/ML 20 ML VIAL IV ONE (13:27)
[2024-01-16] MEDS ORDERED: fentaNYL (PF) 50 MCG/ML 2 ML AMP ONE (13:27)
[2024-01-16] MEDS ORDERED: ROCURONIUM 10 MG/ML (5 ML VIAL) IV ONE (13:27)
[2024-01-16] MEDS ORDERED: SUGAMMADEX SODIUM 200 MG/2 ML SDV IV ONE (13:27)
[2024-01-16] MEDS ORDERED: LIDOCAINE 1% INJ 10MG/ML (20 ML MDV) ONE (13:27)
[2024-01-16] MEDS: BUPIVACAINE (PF) 0.25% 30 ML VIAL SQ ONE (13:32)
[2024-01-16] MEDS: LACTATED RINGERS 1,000 ML IV ONE (14:25)
--- NOTE | 2024-01-16 15:08 | P.OP ---
Date of Procedure: 01/16/24 Procedure(s) Performed: PREOPERATIVE DIAGNOSIS: Incarcerated umbilical hernia POSTOPERATIVE DIAGNOSIS: Same PROCEDURE: Open repair incarcerated umbilical hernia with mesh SURGEON: Dr. Sanchez ANESTHESIA: General OPERATIVE PROCEDURE DETAILS: The patient was placed in the operating table in the supine position. A left sided periumbilical incision was made using the scalpel. The subcutaneous tissues were dissected bluntly and with cautery. The hernia sac was identified. The umbilical attachments to the fascia were divided using electrocautery. The hernia sac was excised along with a portion of omentum. The omental tissue was ligated with 3-0 silk ties. The defect in the fascia measured 3.2 x 2.5 cm. The fat overlying the fascia was dissected. No additional defects were seen. The patient's abdominal wall was extremely thin here. The mesh was placed beneath the peritoneum as there was no visible plane there. A 6.4 cm ventral X mesh was utilized. This was then sutured in place using interrupted trans-fascial 0 Ethibond sutures. The defect was closed horizontally using interrupted vest over pants 0 Ethibond mattress sutures. The subcutaneous tissues were reapproximated using inverted 2-0 & 3-0 Vicryl sutures. The umbilicus was tacked back down to the fascia using a 2-0 Vicryl suture. The skin was closed using 4-0 Monocryl sutures. Skin glue and sterile dressings were then applied. HERNIA CHARACTERISTICS: Length: 2.5 cm Width: 3.2 cm Type: Incarcerated umbilical containing omentum TYPE OF MESH USED: 6.4 cm Ventralex LOCATION OF MESH: Underlay FIXATION: 0 Ethibond PREOPERATIVE DISCUSSION ON SMOKING CESSASTION: Yes PREOPERATIVE DISCUSSION ON MORBID OBESITY: Yes PREOPERATIVE DISCUSSION ON APPROPRIATE USE OF NARCOTIC USE: Yes PREOPERATIVE EDUCATION: Multi Modal, Smoking Cessation and Weight Loss with BMI over 35. DISPOSITION: Stable to recovery room
[2024-01-16 15:49] VITALS: TEMP 97.9
[2024-01-16 17:01] LABS: Glucose,Whole Blood 142 mg/dL (70-110)
[2024-01-16 17:15] VITALS: RESP 17
[2024-01-16 17:56] VITALS: BP 140/72; PULSE 72
== END 2024-01-16 17:40 | disposition home or self-care (01) ==
LOC: OR 11:24
PROVIDERS: ATTEND Surgery
DX: K42.0 Umbilical hernia with obstruction, without gangrene (principal); I25.2 Old myocardial infarction; I25.119 Atherosclerotic heart disease of native coronary artery with unspecified angina pectoris; I10 Essential (primary) hypertension; E11.9 Type 2 diabetes mellitus without complications; K21.9 Gastro-esophageal reflux disease without esophagitis; Z86.718 Personal history of other venous thrombosis and embolism; Z86.711 Personal history of pulmonary embolism; Z95.5 Presence of coronary angioplasty implant and graft; Z79.84 Long term (current) use of oral hypoglycemic drugs; Z79.4 Long term (current) use of insulin; Z79.899 Other long term (current) drug therapy; Z90.49 Acquired absence of other specified parts of digestive tract; Z88.5 Allergy status to narcotic agent
CPT/HCPCS: 84132; 49592; C1781; J1644; J1100; J0690; J2405; J2001; J3010; J2704; J0665; 88302

== ENCOUNTER 2025-01-10 11:41 | Inpatient (IN) | payer MEDICARE ==
--- NOTE | 2025-01-10 12:25 | ED ---
Chest Pain HPI - General Chief Complaint: Chest Pain Stated Complaint: Chest pain Time Seen by Provider: 01/10/25 11:45 Source: patient Mode of arrival: ambulatory Limitations: no limitations - History of Present Illness Initial Comments: 79-year-old female with past medical history of coronary artery disease, last stent in 2018 who presents to the emergency department reporting chest pain. States it started around 3 AM this morning. She describes it as a pressure sensation that radiates to her left jaw and to her arm. She did take a full dose aspirin. She went into Dr. 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 Did an EKG which she thought was within normal limits however she was having active chest pain and therefore he did want her to have laboratory studies in the emergency department. Patient states her pain is 8 out of 10. She did take a nitro as well and this did seem to alleviate her pain somewhat. She denies any recent cardiac testing other than an EKG. She denies shortness of breath. No numbness, tingling or weakness in her extremities. No ripping or tearing station to her back. Does admit to a history of DVTs after however this was when she was significantly younger. She is not currently on any anticoagulation. No other alleviating, precipitating or modifying factors - Related Data Home Medications Medication Instructions Recorded Confirmed Aspirin 81 mg PO DAILY 11/20/14 01/16/24 Citalopram Hydrobromide 40 mg PO QAM 11/20/14 01/11/24 [Citalopram HBr] Timolol 0.5% Ophth Soln [Timoptic 1 drop RIGHT EYE QAM 11/20/14 01/16/24 0.5% Ophth Soln] Vits A,C,E/Lutein/Minerals 1 tab PO BID 11/20/14 01/11/24 [Ocuvite with Lutein Tablet] Insulin Glargine (Lantus) [Lantus 30 unit SQ QAM 09/20/17 01/16/24 Vial] Isosorbide Mononitrate ER [Imdur] 30 mg PO QAM 05/18/19 01/11/24 Oxybutynin Chloride 5 mg PO BID 05/18/19 01/11/24 Pioglitazone HCl [Actos] 15 mg PO DAILY 05/18/19 01/16/24 hydroCHLOROthiazide [Hydrodiuril] 25 mg PO DAILY 05/18/19 01/16/24 lisinopriL [Zestril] 20 mg PO QAM 05/18/19 01/11/24 metFORMIN HCL ER [Glucophage Xr] 500 mg PO TID 05/18/19 01/16/24 L.acidoph,Paracasei, B.lactis 1 each PO DAILY 01/11/24 01/16/24 [Probiotic] Previous Rx's Medication Instructions Recorded oxyCODONE HCL [OxyIR] 5 mg PO Q6H PRN 3 Days #6 tab 01/16/24 Allergies Allergy/AdvReac Type Severity Reaction Status Date / Time codeine AdvReac Nausea & Verified 01/16/24 11:50 Vomiting Review of Systems ROS Statement: Those systems with pertinent positive or pertinent negative responses have been documented in the HPI. ROS Other: All systems not noted in ROS Statement are negative. Past Medical History Past Medical History: Coronary Artery Disease (CAD), Chest Pain / Angina, Diabetes Mellitus, Deep Vein Thrombosis (DVT), Eye Disorder, GERD/Reflux, Hearing Disorder / Deafness, Hypertension, Myocardial Infarction ([place]), Osteoarthritis ([place]), Pulmonary Embolus (PE), Thyroid Disorder Additional Past Medical History / Comment(s): Patient states fell last week, has cast on right baby finger. HX DVT X3 BILATERAL LEGS, HX PE 1971, MACULAR DEGENERATION - LEFT EYE WET, RIGHT EYE DRY, THYROID GOITER, diverticulitis, IBS, varicose veins, mild hearing loss. Last Myocardial Infarction Date:: Jun 2012 History of Any Multi-Drug Resistant Organisms: None Reported Past Surgical History: Bariatric Surgery, Cholecystectomy, Heart Catheterization With Stent, Hysterectomy, Orthopedic Surgery Additional Past Surgical History / Comment(s): CARDIAC STENT X2, LAP BAND-NO FLUID PRESENT, BILATERAL CATARACTS REMOVED, EYE SURGERY TO REMOVE GLASS FROM LEFT EYE, PLASTIC PLATE AND MUSCLE SURGERY LEFT EYE. Past Anesthesia/Blood Transfusion Reactions: No Reported Reaction Additional Past Anesthesia/Blood Transfusion Reaction / Comment(s): No blood transfusion hx. Date of Last Stent Placement:: NOVEMBER 2014 Past Psychological History: No Psychological Hx Reported Smoking Status: Former smoker Past Alcohol Use History: None Reported Past Drug Use History: None Reported - Past Family History Sister(s) Family Medical History: Deep Vein Thrombosis (DVT) Brother(s) Family Medical History: Cancer Additional Family Medical History / Comment(s): Leukemia. Father Family Medical History: Coronary Artery Disease (CAD), Diabetes Mellitus General Exam Limitations: no limitations Course Vital Signs 01/10/25 01/10/25 01/10/25 11:44 13:14 14:33 Temperature 97.7 F Pulse Rate 71 71 76 Respiratory 20 18 18 Rate Blood Pressure 193/76 180/71 153/85 O2 Sat by Pulse 98 96 Oximetry Chest Pain MDM - MDM Was pt. sent in by a medical professional or institution (RADHA Oliva, MANAGED CARE ANALYST, urgent care, hospital, or fdc...) When possible be specific @ -[No] Did you speak to anyone other than the patient for history (EMS, parent, family, police, friend...)? What history was obtained from this source @ -[No] Did you review nursing and triage notes (agree or disagree)? Why? @ -[I reviewed and agree with nursing and triage notes] Were old charts reviewed (outside hosp., previous admission, EMS record, old EKG, old radiological studies, urgent care reports/EKG's, fdc records)? Report findings @ -[No old charts were reviewed] Differential Diagnosis (chest pain, altered mental status, abdominal pain women, abdominal pain men, vaginal bleeding, weakness, fever, dyspnea, syncope, headache, dizziness, GI bleed, back pain, seizure, CVA, palpatations, mental health, musculoskeletal)? @ -[not applicable] EKG interpreted by me (3pts min.). @ -Yes and demonstrates sinus rhythm with rate of 69. IN interval 185. QRS 81. QTc of 419. No acute ST segment elevations or depressions X-rays interpreted by me (1pt min.). @ -[None done] CT interpreted by me (1pt min.). @ -[None done] U/S interpreted by me (1pt. min.). @ -[None done] What testing was considered but not performed or refused? (CT, X-rays, U/S, labs)? Why? @ -[None] What meds were considered but not given or refused? Why? @ -[None] Did you discuss the management of the patient with other professionals (professionals i.e. RADHA Oliva, MANAGED CARE ANALYST, lab, RT, psych nurse, socially responsible investment adviser, hemotherapist, teacher, records officer, bottle caser)? Give summary @ -[No] Was smoking cessation discussed for >3mins.? @ -[No] Was critical care preformed (if so, how long)? @ -[No] Were there social determinants of health that impacted care today? How? (Homelessness, low income, unemployed, alcoholism, drug addiction, transportation, low edu. Level, literacy, decrease access to med. care, alf, rehab)? @ -[No] Was there de-escalation of care discussed even if they declined (Discuss DNR or withdrawal of care, Hospice)? DNR status @ -[No] What co-morbidities impacted this encounter? (DM, HTN, Smoking, COPD, CAD, Cancer, CVA, ARF, Chemo, Hep., AIDS, mental health diagnosis, sleep apnea, morbid obesity)? @ -[None] Was patient admitted / discharged? Hospital course, mention meds given and route, prescriptions, significant lab abnormalities, going to OR and other pertinent info. @ -[hospital course] Undiagnosed new problem with uncertain prognosis? @ -[No] Drug Therapy requiring intensive monitoring for toxicity (Heparin, Nitro, Insulin, Cardizem)? @ -[No] Were any procedures done? @ -[No] Diagnosis/symptom? @ -[default] Acute, or Chronic, or Acute on Chronic? @ -[default] Uncomplicated (without systemic symptoms) or Complicated (systemic symptoms)? @ -[default] Side effects of treatment? @ -[No] Exacerbation, Progression, or Severe Exacerbation? @ -[No] Poses a threat to life or bodily function? How? (Chest pain, [place], [place], pneumonia, PE, COPD, DKA, ARF, appy, cholecystitis, CVA, Diverticulitis, Homicidal, Suicidal, threat to staff... and all critical care pts) @ -[No] Disposition Clinical Impression: Chest pain Disposition: ADMITTED IP TO THIS [facility] Condition: Serious Is patient prescribed a controlled substance at d/c from ED?: No Referrals: Kevin Chandler [Primary Care Provider] - 1-2 days Time of Disposition: 15:20 Decision to Admit Reason: Admit from EC Decision Date: 01/10/25 Decision Time: 15:20
[2025-01-10 13:31] LABS: Basophils # (A) 0.03 10*3/uL (0.00-0.10); Basophils % (A) 0.4 %; Eosinophils # (A) 0.08 10*3/uL (0.04-0.35); HCT 35.3 % (37.2-46.3); HGB 12.1 g/dL (12.0-15.0); Lymphocytes # (A) 0.94 10*3/uL (0.90-5.00); Lymphocytes % (A) 12.2 %; MCH 31.4 pg (27.0-32.0); MCHC 34.3 g/dL (32.0-37.0); MCV 91.7 fL (80.0-97.0); Mean Platelet Volume 10.4 fL (9.5-12.2); Monocytes # (A) 0.63 10*3/uL (0.20-1.00); Monocytes % (A) 8.2 %; Neutrophils # (A) 6.01 10*3/uL (1.80-7.70); Neutrophils % (A) 77.9 %; Platelet Count 217 10*3/uL (140-440); RBC 3.85 10*6/uL (4.10-5.20); RDW 12.9 % (11.5-14.5); WBC 7.71 10*3/uL (4.50-10.00)
[2025-01-10 13:43] LABS: ALT 13 U/L (4-34); AST 17 U/L (14-36); African American GFR (CKD) 75 (>60 ml/min/1.73 sqM); Albumin 3.7 g/dL (3.5-5.0); Alkaline Phosphatase 53 U/L (38-126); Anion Gap 9 mmol/L; Blood Urea Nitrogen 25 mg/dL (7-17); Carbon Dioxide 26 mmol/L (22-30); Chloride 99 mmol/L (98-107); Glucose 108 mg/dL (74-99); Magnesium 1.5 mg/dL (1.6-2.3); Non-African American GFR(CKD) 65 (>60 ml/min/1.73 sqM); Potassium 4.6 mmol/L (3.5-5.1); Sodium 134 mmol/L (137-145); Total Bilirubin 0.4 mg/dL (0.2-1.3); Total Protein 5.9 g/dL (6.3-8.2)
[2025-01-10 13:47] LABS: INR 0.9 (<1.2); Partial Thromboplastin Time 22.4 sec (22.0-30.0)
[2025-01-10 13:52] LABS: NT-Pro-B-Type Natriuretic Pept 726 pg/mL
[2025-01-10] MEDS: MORPHINE SULFATE 4 MG/ML SYRINGE IVP STA ×2 (14:57→20:33)
[2025-01-10] MEDS ORDERED: NALOXONE 0.4 MG/ML 1 ML VIAL IV PRN (15:20)
--- NOTE | 2025-01-10 15:26 | XR ---
EXAMINATION TYPE: XR chest 2V DATE OF EXAM: 01/10/2025 CLINICAL INDICATION: Female, 79 years old with history of Chest Pain, TECHNIQUE: Frontal and lateral views of the chest are obtained. COMPARISON: Prior chest CT February 26, 2020 FINDINGS: There is background Chronic emphysematous change without suspicious new focal air space op acity, pleural effusion, or pneumothorax seen. Left hilar linear scarring is redemonstrated. The car diac silhouette size is upper limits of normal. The osseous structures are intact. IMPRESSION: Chronic emphysematous changes without acute pulmonary process. [facility], , 01/10/2025 3:24 PM
[2025-01-10] MEDS: NITROGLYCERIN OINT 1 INCH/GM PACKET TOPICAL STA (15:46)
[2025-01-11] MEDS ORDERED: Magnesium Replacement Protocol 1 EACH MISC MISCELLANE PRN (06:41)
[2025-01-11] MEDS ORDERED: DEXTROSE 50% SYRINGE 50 ML IVP PRN ×2 (06:42)
[2025-01-11] MEDS ORDERED: ACETAMINOPHEN TAB 325 MG TAB PO PRN (06:42)
[2025-01-11 06:43] LABS: Basophils # (A) 0.02 10*3/uL (0.00-0.10); Basophils % (A) 0.4 %; Eosinophils # (A) 0.11 10*3/uL (0.04-0.35); HCT 35.4 % (37.2-46.3); Lymphocytes # (A) 0.85 10*3/uL (0.90-5.00); Lymphocytes % (A) 15.8 %; MCH 31.7 pg (27.0-32.0); MCHC 33.9 g/dL (32.0-37.0); MCV 93.7 fL (80.0-97.0); Mean Platelet Volume 10.5 fL (9.5-12.2); Monocytes # (A) 0.53 10*3/uL (0.20-1.00); Monocytes % (A) 9.9 %; Neutrophils # (A) 3.85 10*3/uL (1.80-7.70); Neutrophils % (A) 71.7 %; Platelet Count 185 10*3/uL (140-440); RBC 3.78 10*6/uL (4.10-5.20); WBC 5.37 10*3/uL (4.50-10.00)
[2025-01-11] MEDS ORDERED: HEPARIN SODIUM 1,000 UN/ML (10ML VL) IV PRN (06:43)
[2025-01-11] MEDS: HEPARIN SODIUM 1,000 UN/ML (10ML VL) IV ONE (06:55)
[2025-01-11] MEDS: HEPARIN SOD,PORK IN 0.45% NACL 25,000 UNIT in 0.45% NACL 1 250ML.BAG IV SCH (06:56)
[2025-01-11 07:07] LABS: African American GFR (CKD) 69 (>60 ml/min/1.73 sqM); Anion Gap 4 mmol/L; Blood Urea Nitrogen 27 mg/dL (7-17); Calcium 9.6 mg/dL (8.4-10.2); Carbon Dioxide 29 mmol/L (22-30); Chloride 101 mmol/L (98-107); Glucose 77 mg/dL (74-99); Non-African American GFR(CKD) 60 (>60 ml/min/1.73 sqM); Potassium 4.3 mmol/L (3.5-5.1); Sodium 134 mmol/L (137-145)
[2025-01-11 07:22] LABS: INR 0.9 (<1.2); Partial Thromboplastin Time 22.6 sec (22.0-30.0); Prothrombin Time 10.3 sec (10.0-12.5)
[2025-01-11] MEDS: INSULIN LISPRO (HumaLOG) 100 UNIT/ML 10 mL VL SQ SCH (07:32)
[2025-01-11 07:34] LABS: Glucose,Whole Blood 84 mg/dL (70-110)
[2025-01-11] MEDS: INSULIN GLARGINE (LANTUS) 100 UNIT/ML SYR SQ SCH (08:06)
[2025-01-11] MEDS: ASPIRIN 81 MG PO SCH (08:07)
[2025-01-11] MEDS: ATORVASTATIN 10 MG TAB PO SCH (08:07)
[2025-01-11] MEDS: metFORMIN 500 MG TAB PO SCH (08:07)
[2025-01-11] MEDS: CITALOPRAM HYDROBROMIDE 20 MG TAB PO SCH (08:07)
[2025-01-11] MEDS: lisinopriL 20 MG TAB PO SCH (08:09)
[2025-01-11] MEDS: ISOSORBIDE MONONITRATE ER 30 MG TAB.ER.24H PO SCH (08:09)
[2025-01-11] MEDS: SODIUM CHLORIDE 0.9% 1,000 ML IV ONE (08:35)
[2025-01-11] MEDS ORDERED: ALPRAZolam 0.5 MG TAB PO PRN (08:40)
[2025-01-11] MEDS ORDERED: ALPRAZolam 0.25 MG TAB PO PRN (08:40)
[2025-01-11] MEDS ORDERED: NITROGLYCERIN SL TABS 0.4 MG TAB SUBLINGUAL PRN ×2 (08:40→14:04)
[2025-01-11 08:42] LABS: Glucose,Whole Blood 81 mg/dL (70-110)
[2025-01-11] MEDS: ATORVASTATIN 80 MG TAB PO SCH (08:46)
[2025-01-11] MEDS: SODIUM CHLORIDE 0.9% 1,000 ML IV SCH (08:54)
[2025-01-11] MEDS: MAGNESIUM SULFATE-D5W PMX 1 GM in DEXTROSE/WATER 1 100ML.BAG IVPB SCH (08:54)
[2025-01-11] MEDS: ATORVASTATIN 80 MG TAB PO STA (09:00)
[2025-01-11] MEDS: TIMOLOL 0.5% OPHTH DROPS 5 ML BTL RIGHT EYE SCH (09:01)
[2025-01-11] MEDS: ASPIRIN 325 MG TAB PO STA (09:01)
[2025-01-11] MEDS: ASPIRIN 81 MG PO ONE (09:26)
[2025-01-11] MEDS: MORPHINE SULFATE 4 MG/ML SYRINGE IVP PRN (09:46)
--- NOTE | 2025-01-11 10:59 | P.CRDCN ---
History of Present Illness Consult date: 01/11/25 Reason for Consult (text): Acute chest pain, history of CAD History of present illness: This is a 79-year-old female patient of Dr. Magana with past medical history of coronary artery disease status post PCI of the RCA and left circumflex with k nown intermediate disease involving the LAD, diabetes, hypertension, dyslipidemia, valvular heart disease with aortic stenosis. Patient had a follow-up office visit yesterday with Dr. Magana and had presented with chest pain that had started the morning at 3 AM. EKG showed nonspecific changes but no significant acute findings. Patient was then sent to the emergency center at [facility] for evaluation. Patient states that her chest pain was on the left side as well as the left arm and into her back with nausea. She also had a pain across her upper abdomen. At this time of evaluation, she states she feels a little pressure in her chest. Patient has been started on a heparin drip. Blood pressure 147/61, heart rate 69, pulse ox 93% on room air. -EKG: Sinus rhythm with no acute ST changes. -Chest x-ray: Chronic emphysematous changes without acute process. -Laboratory studies: WBC 5.3, hemoglobin 12. Troponin 0.012, 0.036, 0.082. BUN 27 creatinine 0.93, potassium 4.3. proBNP 726. -Home cardiac medications: Aspirin 81 mg daily, hydrochlorothiazide 25 mg daily, Imdur 30 mg daily, lisinopril 20 mg daily, rosuvastatin 5 mg daily, patient is also on Ozempic. -Echocardiogram performed in the office -Lexiscan Cardiolite stress test -performed 12/23/2022 revealed nondiagnostic electrocardiographic stress testing response to Lexiscan. Normal myocardial perfusion imaging. No evidence of stress-induced ischemia. Normal LV systolic function. -Cardiac catheterization performed in 2018 revealed patent stent in the RCA and left circumflex. Mild nonobstructive disease involving the LAD. Review Of Systems: At the time of my exam: CONSTITUTIONAL: Denies fever or chills. HEENT: Denies blurred vision, vision changes, or eye pain. Denies hemoptysis CARDIOVASCULAR: Mild chest pressure. Denies orthopnea. Denies PND. Denies palpitations RESPIRATORY: Denies shortness of breath. GASTROINTESTINAL: Denies abdominal pain. Denies nausea or vomiting. HEMATOLOGIC: Denies bleeding disorders. GENITOURINARY: Denies any blood in urine. SKIN: Denies puritis. Denies rash. Physical examination: Gen: This is 79-year-old female in no acute distress VS: reviewed HEENT: Head is atraumatic, normocephalic. Pupils equal, round. Sclerae is anicteric. NECK: Supple. No JVD. LUNGS: Clear to auscultation. No wheezes or rhonchi. No intercostal retractions. HEART: Regular rate and rhythm. Systolic murmur. ABDOMEN: Soft No tenderness. EXTREMITIES: No pedal edema. No calf tenderness. NEUROLOGICAL: Patient is awake, alert and oriented x3. Assessment: NSTEMI History of coronary artery disease with previous PCI of the RCA and LCx Known intermediate disease involving the LAD Diabetes mellitus Hypertension Dyslipidemia Valvular heart disease with aortic stenosis. Plan: Resume patient's home cardiac medications Continue heparin drip Patient will be scheduled for cardiac catheterization today with Dr. Magana. Obtain 2-D echocardiogram and Doppler study to assess cardiac structure and function Further recommendations to follow based upon clinical course Thank you kindly for this consultation. Nurse practitioner note has been reviewed, I agree with documented findings and plan of care. Patient was seen and examined. Past Medical History Past Medical History: Coronary Artery Disease (CAD), Chest Pain / Angina, Diabetes Mellitus, Deep Vein Thrombosis (DVT), Eye Disorder, GERD/Reflux, Hearing Disorder / Deafness, Hypertension, Myocardial Infarction ([place]), Osteoarthritis (OA), Pulmonary Embolus (PE), Thyroid Disorder Additional Past Medical History / Comment(s): Patient states fell last week, has cast on right baby finger. HX DVT X3 BILATERAL LEGS, HX PE 1972, MACULAR DEGENERATION - LEFT EYE WET, RIGHT EYE DRY, THYROID GOITER, diverticulitis, IBS, varicose veins, mild hearing loss. Last Myocardial Infarction Date:: Jun 2012 History of Any Multi-Drug Resistant Organisms: None Reported Past Surgical History: Bariatric Surgery, Cholecystectomy, Heart Catheterization With Stent, Hysterectomy, Orthopedic Surgery Additional Past Surgical History / Comment(s): CARDIAC STENT X2, LAP BAND-NO FLUID PRESENT, BILATERAL CATARACTS REMOVED, EYE SURGERY TO REMOVE GLASS FROM LEFT EYE, PLASTIC PLATE AND MUSCLE SURGERY LEFT EYE. Past Anesthesia/Blood Transfusion Reactions: No Reported Reaction Additional Past Anesthesia/Blood Transfusion Reaction / Comment(s): No blood transfusion hx. Date of Last Stent Placement:: NOVEMBER 2014 Past Psychological History: No Psychological Hx Reported Smoking Status: Former smoker Past Alcohol Use History: None Reported Past Drug Use History: None Reported - Past Family History Sister(s) Family Medical History: Deep Vein Thrombosis (DVT) Brother(s) Family Medical History: Cancer Additional Family Medical History / Comment(s): Leukemia. Father Family Medical History: Coronary Artery Disease (CAD), Diabetes Mellitus Medications and Allergies Home Medications Medication Instructions Recorded Confirmed Type Aspirin 81 mg PO QAM 11/20/14 01/10/25 History Citalopram Hydrobromide 40 mg PO QAM 11/20/14 01/10/25 History [Citalopram HBr] Timolol 0.5% Ophth Soln [Timoptic 1 drop RIGHT EYE QAM 11/20/14 01/10/25 History 0.5% Ophth Soln] Isosorbide Mononitrate ER [Imdur] 30 mg PO QAM 05/18/19 01/10/25 History hydroCHLOROthiazide [Hydrodiuril] 25 mg PO QAM 05/18/19 01/10/25 History lisinopriL [Zestril] 20 mg PO QAM 05/18/19 01/10/25 History metFORMIN HCL ER [Glucophage Xr] 1,500 mg PO QAM 05/18/19 01/10/25 History Insulin Glargine,Hum.rec.anlog 25 units SQ QAM 01/10/25 01/10/25 History [Lantus Solostar Pen] Insulin Lispro [humaLOG Kwikpen] See Protocol SQ AC-TID MDD 30 UNITS 01/10/25 01/10/25 History L.acidoph,[place],Rhamn/Thean 1 cap PO QAM 01/10/25 01/10/25 History [Florastor Woman's Probiotic Cp] Rosuvastatin Calcium 5 mg PO QAM 01/10/25 01/10/25 History Semaglutide [Ozempic] 2 mg SQ TU 01/10/25 01/10/25 History Allergies Allergy/AdvReac Type Severity Reaction Status Date / Time codeine AdvReac Nausea & Verified 01/11/25 09:21 Vomiting Physical Exam Vitals: Vital Signs Temp Pulse Resp BP Pulse Ox 01/11/25 06:21 69 16 147/61 93 L 01/11/25 03:12 74 16 149/64 96 01/11/25 02:00 80 16 151/62 96 01/11/25 01:00 80 18 150/58 96 01/11/25 00:00 78 18 167/68 90 L 01/10/25 23:00 75 18 161/63 91 L 01/10/25 20:42 75 18 156/66 98 01/10/25 20:12 76 18 146/68 96 01/10/25 14:33 76 18 153/85 96 01/10/25 13:14 71 18 180/71 98 01/10/25 11:44 97.7 F 71 20 193/76 Results 01/11/25 05:55 01/11/25 05:55 Cardiac Enzymes 01/10/25 01/10/25 01/10/25 Range/Units 12:48 12:48 16:11 AST 17 (14-36) U/L Troponin I <0.012 0.036 H* (0.000-0.034) ng/mL 01/10/25 Range/Units 19:03 AST (14-36) U/L Troponin I 0.082 H* (0.000-0.034) ng/mL Coagulation 01/10/25 01/11/25 Range/Units 12:48 06:49 PT 10.0 10.3 (10.0-12.5) sec APTT 22.4 22.6 (22.0-30.0) sec CBC 01/10/25 01/11/25 Range/Units 12:48 05:55 WBC 7.71 5.37 (4.50-10.00) 10*3/uL RBC 3.85 L 3.78 L (4.10-5.20) 10*6/uL Hgb 12.1 12.0 (12.0-15.0) g/dL Hct 35.3 L 35.4 L (37.2-46.3) % Plt Count 217 185 (140-440) 10*3/uL Comprehensive Metabolic Panel 01/10/25 01/11/25 Range/Units 12:48 05:55 Sodium 134 L 134 L (137-145) mmol/L Potassium 4.6 4.3 (3.5-5.1) mmol/L Chloride 99 101 (98-107) mmol/L Carbon Dioxide 26 29 (22-30) mmol/L BUN 25 H 27 H (7-17) mg/dL Creatinine 0.86 0.93 (0.52-1.04) mg/dL Glucose 108 H 77 (74-99) mg/dL Calcium 10.0 9.6 (8.4-10.2) mg/dL AST 17 (14-36) U/L ALT 13 (4-34) U/L Alkaline Phosphatase 53 (38-126) U/L Total Protein 5.9 L (6.3-8.2) g/dL Albumin 3.7 (3.5-5.0) g/dL Current Medications Generic Name Dose Route Start Last Admin Trade Name Freq PRN Reason Stop Dose Admin Acetaminophen 650 mg 01/11/25 06:42 Acetaminophen Tab 325 Mg Tab PO Q6HR PRN Fever and/ or Pain Aspirin 81 mg 01/11/25 09:00 [facility] [place] Atorvastatin Calcium 10 mg 01/11/25 09:00 Atorvastatin 10 Mg [facility] [place] Citalopram Hydrobromide 40 mg 01/11/25 09:00 Citalopram Hydrobromide 20 Mg Tab [facility] [place] Dextrose/Water 25 ml 01/11/25 06:42 Dextrose 50% Syringe 50 Ml IVP PER PROTOCOL PRN Hypoglycemia Protocol Dextrose/Water 50 ml 01/11/25 06:42 Dextrose 50% Syringe 50 Ml IVP PER PROTOCOL PRN Hypoglycemia Protocol Heparin Sodium (Porcine) 0 unit 01/11/25 06:43 Heparin Sodium 1,000 Un/Ml (10ml Vl) IV PER PROTOCOL PRN Low PTT Protocol Magnesium Sulfate/Dextrose 1 100 mls @ 100 mls/hr 01/11/25 07:30 gm/ IV Solution IVPB 01/11/25 09:29 Q1H [facility] Protocol Heparin Sodium/Sodium Chloride 250 mls @ 9.525 mls/hr 01/11/25 06:45 01/11/25 06:56 25,000 unit/ Sodium Chloride IV 12 units/kg/hr .Q24H [facility] 9.525 mls/hr Administration Protocol 12 UNITS/KG/HR Insulin Glargine 25 unit 01/11/25 08:00 Insulin Glargine (Lantus) 100 Unit/Ml Syr SQ QAM@0700 [facility] Insulin Human Lispro 0 unit 01/11/25 07:30 01/11/25 07:32 Insulin Lispro (Humalog) 100 Unit/Ml 10 Ml Vl SQ Not Given ACHS [facility] Protocol Isosorbide Mononitrate 30 mg 01/11/25 09:00 Isosorbide Mononitrate Er 30 Mg Tab.Er.24h [facility] Lisinopril 20 mg 01/11/25 09:00 Lisinopril 20 Mg Tab [facility] [place] Metformin HCl 750 mg 01/11/25 09:00 Metformin 500 Mg Tab PO BID [facility] Miscellaneous Information 1 each 01/11/25 06:41 Magnesium Replacement Protocol 1 Each Misc MISCELLANE DAILY PRN Per Protocol Protocol Naloxone HCl 0.2 mg 01/10/25 15:20 Naloxone 0.4 Mg/Ml 1 Ml Vial IV Q2M PRN Opioid Reversal Non-Formulary Medication 2 mg 01/15/25 09:00 Semaglutide [Ozempic] SQ Tu@0900 [facility] Timolol Maleate 1 drops 01/11/25 09:00 Timolol 0.5% Ophth Drops 5 Ml Btl RIGHT EYE QAM [facility] 01/11/25 05:55 01/11/25 05:55
[2025-01-11 11:42] LABS: Glucose,Whole Blood 63 mg/dL (70-110)
[2025-01-11 12:01] LABS: Glucose,Whole Blood 71 mg/dL (70-110)
[2025-01-11] MEDS: fentaNYL (PF) 50 MCG/ML 2 ML AMP IVP ONE ×2 (13:21)
[2025-01-11] MEDS: MIDAZOLAM 2 MG/2 ML VIAL IVP ONE (13:21)
[2025-01-11] MEDS: LIDOCAINE 1% INJ 10MG/ML (20 ML MDV) SQ ONE (13:25)
[2025-01-11] MEDS: HEPARIN SODIUM 1,000 UN/ML (10ML VL) IVP ONE (13:34)
[2025-01-11] MEDS: TICAGRELOR 90 MG TAB PO ONE (13:42)
[2025-01-11] MEDS: NITROGLYCERIN 1000MCG/10ML SYRINGE INTRAARTER ONE (13:58)
[2025-01-11] MEDS: IOPAMIDOL-370 100ML BTL INJ ONE (14:02)
[2025-01-11] MEDS: HEPARIN SODIUM (1,000 UNIT/ML) 1,000 UNIT in SODIUM CHLORIDE 0.9% 1,000 ML IRRIGATION ONE (14:03)
[2025-01-11] MEDS: HEPARIN SODIUM,PORCINE (1 ML) 2,500 UNIT in SODIUM CHLORIDE 0.9% 250 ML IRRIGATION ONE (14:03)
[2025-01-11] MEDS ORDERED: RX INFO: IV CONTRAST WAS GIVEN 1 EACH MISC MISCELLANE PRN (14:04)
[2025-01-11] MEDS ORDERED: ZOLPIDEM 5 MG TAB PO PRN (14:04)
[2025-01-11] MEDS ORDERED: ATROPINE SULFATE 0.1 MG/ML 10ML SYRINGE IV PRN (14:04)
[2025-01-11] MEDS ORDERED: MAG HYDROX/AL HYDROX/SIMETH 30 ML CUP PO PRN (14:04)
--- NOTE | 2025-01-11 14:08 | P.PCN ---
Date of Procedure: 01/11/25 Operative Findings: CARDIAC CATHETERIZATION AND PERCUTANEOUS CORONARY INTERVENTION PERFORMING PHYSICIAN: Pop Magana MD, RPVI PROCEDURE PERFORMED: 1. Selective right and left coronary angiogram and left heart catheterization 2. Successful stenting of mid LAD using 3.25 x 33 mm Xience LEILANI with an exce llent angiographic results 3. Adjunctive use of IVUS and IFR 4. Ultrasound-guided access of the right radial artery INDICATION: Non-STEMI COMPLICATION: None APPROACH: Right common femoral artery LEVEL OF SEDATION: Moderate with the sedation time off 33 minutes PROCEDURE DESCRIPTION: After obtaining informed consent the patient was brought to the cardiac Water Resources Technical Officer with right common femoral artery was cannulated using micropuncture technique under ultrasound guidance a micropuncture wire passed easily then I placed a 6 Pakistani 11 cm sheath at the right common femoral artery and selective right and left coronary angiogram performed using JR4 and JL 4 catheters and also left heart catheterization was performed using the JR 4 catheter. After that I decided to intervene on the LAD after IFR was performed. After zeroing the Dobler wire and equalized in between the Dobler wire and guiding catheter which was JL 4 guiding catheter the left main was engaged and subsequently the LAD was wired with IFR came to be flow-limiting. The IFR was 0.64. At that point I did IVUS of the LAD which showed a diameter around 3 mm. Predilatation was performed using 3 mm NC balloon before I deployed 3.25 x 33 mm stent which was postdilated using 3.25 and then 3.5 mm NC balloon was final angiogram and IVUS showed good results and the procedure was completed with no complication SELECTIVE CORONARY ANGIOGRAM: The right coronary artery: Large caliber vessel and a dominant vessel with no high-grade stenosis Left main: Is angiographically normal The left circumflex: Large caliber vessel with patent stent in the proximal portion and no evidence of high-grade stenosis The left anterior descending artery: Has intermediate to severe disease involving midportion documented to be flow- limiting by Doppler wire HEMODYNAMICS: LVEDP was 12 mmHg with no evidence of gradient across aortic valve CONCLUSION: 1. Severe disease involving the LAD I did perform successful PCI as described above POSTPROCEDURE MANAGEMENT: 1. Dual antiplatelet therapy using aspirin and Brilinta for 12 month 2. Aggressive cholesterol control 3. Follow-up with the patient
[2025-01-11 17:20] LABS: Glucose,Whole Blood 72 mg/dL (70-110)
[2025-01-11] MEDS: SODIUM CHLORIDE 0.9% 1,000 ML in EMPTY BAG 1 BAG IV SCH (17:29)
[2025-01-11] MEDS: TICAGRELOR 90 MG TAB PO SCH (19:57)
[2025-01-11 20:36] LABS: Glucose,Whole Blood 79 mg/dL (70-110)
[2025-01-12 01:54] LABS: Glucose,Whole Blood 64 mg/dL (70-110)
[2025-01-12 02:11] LABS: Glucose,Whole Blood 68 mg/dL (70-110)
[2025-01-12 02:46] LABS: Glucose,Whole Blood 96 mg/dL (70-110)
[2025-01-12 06:24] LABS: Glucose,Whole Blood 144 mg/dL (70-110)
[2025-01-12 07:00] LABS: Basophils # (A) 0.03 10*3/uL (0.00-0.10); Basophils % (A) 0.5 %; Eosinophils # (A) 0.17 10*3/uL (0.04-0.35); Eosinophils % (A) 2.7 %; HCT 32.9 % (37.2-46.3); HGB 11.3 g/dL (12.0-15.0); Lymphocytes # (A) 0.66 10*3/uL (0.90-5.00); Lymphocytes % (A) 10.5 %; MCH 31.7 pg (27.0-32.0); MCHC 34.3 g/dL (32.0-37.0); MCV 92.4 fL (80.0-97.0); Mean Platelet Volume 10.6 fL (9.5-12.2); Monocytes # (A) 0.56 10*3/uL (0.20-1.00); Monocytes % (A) 8.9 %; Neutrophils # (A) 4.82 10*3/uL (1.80-7.70); Neutrophils % (A) 77.1 %; Platelet Count 178 10*3/uL (140-440); RBC 3.56 10*6/uL (4.10-5.20); WBC 6.26 10*3/uL (4.50-10.00)
[2025-01-12] MEDS ORDERED: HEPARIN SODIUM,PORCINE (1 ML) 2,500 UNIT in SODIUM CHLORIDE 0.9% 250 ML IRRIGATION PRN (07:00)
[2025-01-12] MEDS ORDERED: HEPARIN SODIUM,PORCINE 10,000 UNIT in SODIUM CHLORIDE 0.9% 1,000 ML IRRIGATION PRN (07:00)
[2025-01-12 07:08] LABS: INR 0.9 (<1.2); Prothrombin Time 10.3 sec (10.0-12.5)
[2025-01-12 08:44] LABS: African American GFR (CKD) 82 (>60 ml/min/1.73 sqM); Magnesium 1.7 mg/dL (1.6-2.3); Non-African American GFR(CKD) 71 (>60 ml/min/1.73 sqM)
[2025-01-12 11:01] VITALS: BMI 28.5
[2025-01-12 12:04] LABS: Glucose,Whole Blood 186 mg/dL (70-110)
[2025-01-12 12:27] VITALS: BP 167/75; PULSE 91; RESP 18; TEMP 98.1
--- NOTE | 2025-01-13 11:35 | CA ---
Transthoracic Echo Report Name: Melida Johnson Age: 79 Gender: F : 1945 Exam Date: 01/11/2025 14:45 Exam Location: [place] [facility] Ht (in): 66 Wt (lb): 175 Ordering Physician: Wanda Dumont Attending/Referring Phys: [id number], Tim Bobbin Marker Yesika Santana RDCS Procedure CPT: Indications: nstemi Cardiac Hx: Technical Quality: Fair Contrast 1: Definity Total Dose (mL): 2 Contrast 2: Total Dose (mL): MEASUREMENTS (Male / Female) Normal Values 2D ECHO LV Diastolic Diameter PLAX 4.1 cm 4.2 - 5.9 / 3.9 - 5.3 cm LV Systolic Diameter PLAX 3.0 cm IVS Diastolic Thickness 1.5 cm 0.6 - 1.0 / 0.6 - 0.9 cm LVPW Diastolic Thickness 1.7 cm 0.6 - 1.0 / 0.6 - 0.9 cm LV Relative Wall Thickness 0.8 RV Internal Dim ED PLAX 2.0 cm LVOT Diameter 2.0 cm LA Systolic Diameter LX 4.4 cm 3.0 - 4.0 / 2.7 - 3.8 cm M-MODE Aortic Root Diameter MM 3.4 cm LA Systolic Diameter MM 4.1 cm LA Ao Ratio MM 1.2 AV Cusp Separation MM 1.5 cm DOPPLER AV Peak Velocity 220.2 cm/s AV Peak Gradient 19.4 mmHg AV Mean Velocity 174.9 cm/s AV Mean Gradient 12.9 mmHg AV Velocity Time Integral 47.6 cm LVOT Peak Velocity 137.1 cm/s LVOT Peak Gradient 7.5 mmHg LVOT Velocity Time Integral 38.1 cm LVOT Stroke Volume 123.8 cm??? LVOT Stroke Volume Index 65.5 ml/m??? LVOT Cardiac Index 4140.8 cm???/min???m??? AV Area Cont Eq vti 2.6 cm??? AV Area Cont Eq pk 2.0 cm??? MV Peak Velocity 170.3 cm/s MV Peak Gradient 11.6 mmHg MV Mean Velocity 87.6 cm/s MV Mean Gradient 3.7 mmHg MV Velocity Time Integral 52.6 cm MV Area PHT 1.6 cm??? Mitral E Point Velocity 87.3 cm/s Mitral A Point Velocity 143.8 cm/s Mitral E to A Ratio 0.6 MV Deceleration Time 487.0 ms TR Peak Velocity 246.1 cm/s TR Peak Gradient 24.2 mmHg Right Ventricular Systolic Press 28.7 mmHg FINDINGS Left Ventricle Left ventricular ejection fraction is estimated at 65-70%. Moderately increased septal wall thickness. Severely increased posterior wall thickness. Hyperdynamic left ventricular systolic function. Left ventricular cavity size normal. Right Ventricle Normal right ventricular size and function. Right ventricular systolic pressure within normal limits. Right Atrium Mild right atrial dilatation. Left Atrium Moderately increased left atrial diameter. Moderately increased left atrial area. Mitral Valve Mitral valve thickened. Mild mitral regurgitation. Minimal mitral stenosis MV Mean PG 3.67 mmHg. Aortic Valve Mild aortic stenosis with a peak gradient of 19 mmHg and a mean gradient of 13 mmHg. No aortic regurgitation. Trileaflet aortic valve. Tricuspid Valve Structurally normal tricuspid valve. Trace to mild tricuspid regurgitation. No tricuspid stenosis. Pulmonic Valve Structurally normal pulmonic valve. No pulmonic stenosis. Trace pulmonic regurgitation. Pericardium No pericardial or pleural effusion. Aorta Normal size aortic root and proximal ascending aorta. CONCLUSIONS LVEF 65%, dynamic LV Severe concentric LVH Grade 1 diastolic dysfunction. Increased LVOT gradients however no significant dynamic obstruction Moderate left atrial dilatation Mild aortic stenosis mean gradient 13 mmHg Previewed by: Dr Gianni Jimenez (Electronically Signed) Final Date: 13 Jan 2025 11:34
[2025-01-15] MEDS ORDERED: NON FORMULARY DRUG (Semaglutide [Ozempic] 2 MG/0.75 ML Pen.Injctr) SQ SCH (09:00)
== END 2025-01-12 16:33 | disposition home or self-care (01) | DRG 322 ==
LOC: EC 11:41 → 6NMEDSUR 15:21 → OBSVTOIN 15:22 → 3SCARD 18:13
PROVIDERS: ADMIT Internal Medicine; ATTEND Internal Medicine
PROC: 027034Z Dilation of Coronary Artery, One Artery with Drug-eluting Intraluminal Device, Percutaneous Approach (ICD-10-PCS; principal; 2025-01-11 13:02)
PROC: 4A023N7 Measurement of Cardiac Sampling and Pressure, Left Heart, Percutaneous Approach (ICD-10-PCS; 2025-01-11 13:02)
PROC: B2111ZZ Fluoroscopy of Multiple Coronary Arteries using Low Osmolar Contrast (ICD-10-PCS; 2025-01-11 13:02)
PROC: B240ZZ3 Ultrasonography of Single Coronary Artery, Intravascular (ICD-10-PCS; 2025-01-11 13:02)
DX: I21.4 Non-ST elevation (NSTEMI) myocardial infarction (principal); E11.9 Type 2 diabetes mellitus without complications; I10 Essential (primary) hypertension; I35.0 Nonrheumatic aortic (valve) stenosis; Z79.4 Long term (current) use of insulin; E78.5 Hyperlipidemia, unspecified; I25.10 Atherosclerotic heart disease of native coronary artery without angina pectoris; Z79.82 Long term (current) use of aspirin; Z79.84 Long term (current) use of oral hypoglycemic drugs; Z88.5 Allergy status to narcotic agent; Z79.899 Other long term (current) drug therapy; Z86.711 Personal history of pulmonary embolism; Z86.718 Personal history of other venous thrombosis and embolism; Z90.710 Acquired absence of both cervix and uterus
CPT/HCPCS: 36415; 71046; 80048; 80053; 82565; 83036; 83735; 83880; 84484; 85025; 85379; 85610; 85730; 92978; 93005; 93306; 93458; 93799; 96374; 96375; 96376; 99285